=== PATIENT | male | born 1970 | race Caucasian/White ===

== ENCOUNTER → 2016-11-14 | Outpatient (CLI) | payer OTHER | LOC: BMCIMAGING 14:45 | PROVIDERS: ATTEND Family Medicine | DX: M25.552 Pain in left hip (principal) ==

== ENCOUNTER → 2017-11-27 | Outpatient (CLI) | payer OTHER | LOC: BMCIMAGING 14:59 | PROVIDERS: ATTEND Physician Assistant | DX: S99.922A Unspecified injury of left foot, initial encounter (principal); M19.072 Primary osteoarthritis, left ankle and foot ==

== ENCOUNTER 2018-10-26 23:16 | Emergency (ER) | payer OTHER | END 2018-10-27 00:13 | disposition home or self-care (01) ==